=== PATIENT | male | born 1970 ===

== ENCOUNTER 2021-11-11 19:06 | Inpatient (IN) | payer MEDICARE, OTHER ==
[2021-11-11 19:46] VITALS: RESP 18
[2021-11-11] MEDS ORDERED: hydrOXYzine pamoate 25 MG CAP PO PRN (20:19)
[2021-11-11] MEDS ORDERED: LORazepam 1 MG TAB PO PRN (20:31)
[2021-11-11] MEDS ORDERED: ACETAMINOPHEN TAB 325 MG TAB PO PRN (20:31)
[2021-11-11] MEDS ORDERED: MAGNESIUM HYDROXIDE 2,400 MG/10 ML CUP PO PRN (20:31)
[2021-11-11] MEDS ORDERED: MAG HYDROX/AL HYDROX/SIMETH 30 ML CUP PO PRN (20:31)
[2021-11-11] MEDS ORDERED: HALOPERIDOL LACTATE 5 MG/ML 1 ML VIAL IM PRN (20:31)
[2021-11-11] MEDS ORDERED: LORazepam 2 MG/ML INJ IM PRN (20:44)
[2021-11-11] MEDS ORDERED: haloperidoL 5 MG TAB PO PRN (20:44)
[2021-11-11] MEDS: BENZTROPINE MESYLATE 0.5 MG TAB PO SCH (21:14)
[2021-11-11] MEDS: haloperidoL 5 MG TAB PO SCH (21:14)
[2021-11-12] MEDS: NICOTINE 14MG/24HR PATCH TRANSDERM SCH (08:44)
[2021-11-12] MEDS: haloperidoL 5 MG TAB PO SCH (08:44)
[2021-11-12] MEDS: BENZTROPINE MESYLATE 0.5 MG TAB PO SCH ×3 (08:44→21:30)
--- NOTE | 2021-11-12 13:08 | P.HP ---
Psychiatric H&P - . H&P Date: 11/12/21 History & Physical: Allergies Allergy/AdvReac Type Severity Reaction Status Date / Time No Known Allergies Allergy Verified 11/11/21 20:19 Vital Signs Temp 97.7 F 11/12/21 06:05 Pulse 73 11/12/21 06:05 Resp 18 11/12/21 06:05 BP 109/68 11/12/21 06:05 Pulse Ox 96 11/12/21 06:05 FiO2 Intake & Output 11/11/21 11/12/21 11/12/21 18:59 06:59 18:59 Weight 74.503 kg Laboratory Last Values Estimated Ave Glu mg/dL 116 11/12/21 07:23 Hemoglobin A1c 5.7 % (0.0-6.0) 11/12/21 07:23 TSH 4.270 mIU/L (0.465-4.680) 11/12/21 07:23 11/12/21 13:08 IDENTIFYING DATA: Patient is a single, unemployed, 51-year-old male with a significant history of schizophrenia who presents to the hospital from [facility] for auditory hallucinations, rapid speech, and delusions. HPI: Patient presented to the hospital from [facility] to [facility], and was subsequently petitioned and certified and transferred to our psychiatric unit for acute psychosis in the context of medication nonadherence. Upon evaluation on the psychiatric unit, the patient appears to be quite disorganized and unable to provide a clear history of he is difficult to understand and often rambles and is incoherent. He is able to deny any suicidal or homicidal ideation however does endorse some auditory hallucinations and some paranoid delusions. When asking for further detail, the patient is not able to provide any as he is nonsensical in his speech. The patient reports that he is on a regimen of Haldol. PAST PSYCHIATRIC HISTORY: Patient has a reported history of schizophrenia. His home medication regimen includes Haldol and Cogentin. The patient reportedly has multiple inpatient psychiatric admissions. The patient is originally from [facility]. Supposedly was supposed to follow-up with outpatient appointments there. Denies prior suicide attempts. PMH: Denies ALLERGIES: NO KNOWN DRUG ALLERGIES CHEMICAL DEPENDENCY HISTORY: Patient denies any tobacco, alcohol, marijuana, or illicit drug use. FAMILY PSYCHIATRIC/SUBSTANCE USE HISTORY: Unable to assess. SOCIAL HISTORY: Patient was born and raised in [place]. He reports that he is from the [facility]. He is currently homeless. MENTAL STATUS EXAM: General Appearance: Patient appears to be stated age is alert, directable, and attempts to cooperate. Patient appears to have fair hygiene and grooming. Behavior: Patient is seated without any agitated behavior. Speech: Patient's speech is mostly noncoherent and nonsensical. Nonlinear and difficult to follow. Mood/Affect: Patient reports their mood is "okay," affect is congruent and blunted. Suicidality/Homicidality: Currently denying any suicidal or homicidal ideation. Perceptions: Patient denies any visual hallucinations however endorses auditory hallucinations. Though content/process: The patient appears to be grossly disorganized. Memory and concentration: Patient is alert and oriented to person only. Concentration appears to be poor. Judgment and insight: poor STRENGTHS/WEAKNESSES: Patient's strengths include his resourcefulness. Weakness is that his severely mentally ill and nonadherent with treatment. He is also chronically homeless. INTELLECT: average IMPRESSIONS: Schizophrenia PLAN: -Patient is admitted under voluntary status to MHU for stabilization of psychiatric symptoms and safety. Patient signed adult voluntary form and medication consent and is placed in patient's chart. -Medications : Will start patient on Risperdal 2 mg by mouth twice a day for psychosis -Ativan and Haldol PRN for agitation/aggression -Patient was informed of the risks, benefits and side effects of the medication and patient verbally consented to taking the medications. Patient signed med consent form and was placed in chart. -Internal Medicine consult to perform medical evaluation and physical. -NRT - nicotine patch -SW on board for discharge planning. Encourage patient to participate in groups to work on coping skills.
[2021-11-12 16:30] LABS: HDL Cholesterol 44.8 mg/dL (40.00-60.00); Triglycerides 38.3 mg/dL (0.00-149.00)
[2021-11-12 16:43] LABS: Chol/HDL Ratio 3.37 Ratio; LDL Cholesterol,Direct Reflex 89.2 mg/dL (0.00-129.00)
[2021-11-12] MEDS: risperiDONE 2 MG TAB PO SCH (21:30)
--- NOTE | 2021-11-13 04:31 | P.HPIM ---
History of Present Illness H&P Date: 11/13/21 The patient is a 51-year-old male with a PMH of schizophrenia and tobacco abuse who was transferred from [facility] where he had previously presented for hallucinations. The patient reports that he continues to smoke a pack of cigarettes daily. He denied any physical complaints. He denied experiencing fever, chills, cough, chest pain, shortness of breath, nausea, vomiting, abdominal pain, diarrhea. He denied illicit substance use. Review of systems: Pertinent positives and negatives as discussed in HPI, a complete review of systems was performed and all other systems are negative. Physical examination: General: non toxic, no distress, appears at stated age, normal weight Derm: no unusual rashes/lesions no unusual ecchymoses, warm, dry Head: atraumatic, normocephalic, symmetric Eyes: EOMI, no lid lag, anicteric sclera, pupils equal round reactive to light ENT: Nose and ears atraumatic, no thrush, no pharyngeal erythema Neck: No thyromegaly, no cervical lymphadenopathy, trachea midline, supple Mouth: no lip lesion, mucus membranes moist Cardiovascular: S1S2 reg, no murmur, positive posterior tibial pulse bilateral, no edema, capillary refill less than 2 seconds Lungs: CTA bilateral, no rhonchi, no rales , no accessory muscle use Abdominal: soft, nontender to palpation, no guarding, no appreciable organomegaly, normal bowel sounds Ext: no gross muscle atrophy, muscle strength 5 out of 5 in all 4 extremities grossly, no contractures, Neuro: CN II-XI grossly intact, light touch intact all 4 extremities, finger to nose within normal limits, Psych: Alert, oriented, tangential thought process Assessment/plan Psychosis -As per psychiatry Tobacco abuse -Advised on importance of cessation Thank you for allowing us to participate in the care of this patient. We will follow peripherally. Do not hesitate to contact us with questions. Someone can be reached from the [facility] hospitalist group at all hours of the day at [phone]. Past Medical History - Past Family History Father Family Medical History: COPD Medications and Allergies Home Medications Medication Instructions Recorded Confirmed Type Benztropine Mesylate [Cogentin] 0.5 mg PO TID 11/11/21 11/11/21 History haloperidoL [Haloperidol] 5 mg PO TID 11/11/21 11/11/21 History hydrOXYzine pamoate [Vistaril] 25 mg PO Q6HR PRN 11/11/21 11/11/21 History Allergies Allergy/AdvReac Type Severity Reaction Status Date / Time No Known Allergies Allergy Verified 11/11/21 20:19 Physical Exam Vitals: Vital Signs Temp Pulse Resp BP Pulse Ox 11/12/21 06:05 97.7 F 73 18 109/68 96
[2021-11-13] MEDS: risperiDONE 2 MG TAB PO SCH (09:19)
[2021-11-13] MEDS: BENZTROPINE MESYLATE 0.5 MG TAB PO SCH ×3 (09:19→20:28)
[2021-11-13] MEDS: NICOTINE 14MG/24HR PATCH TRANSDERM SCH (09:20)
--- NOTE | 2021-11-13 11:15 | P.PN ---
Progress Note - Text Progress Note Date: 11/13/21 Interval History: Patient was seen wandering the hallways and was directable and agreeable to speak with tag writer in the office. Currently, the patient is much more linear and conversation however continues to be quite disorganized and delusional. He shows multiple pictures to this provider of different materials he has taken pictures of at [employer] including planks of wood and mirrors. The patient reports that he is planning to build an x-ray machine and a photocopier. The patient is not reporting any auditory or visual hallucinations. He denies any suicidal or homicidal ideation, intention, and/or plan. He has been adherent with his medications and is not reporting any significant side effects at this time. He reports no issues regarding his sleep or his appetite. Mental Status Exam: General Appearance: Patient appears to be stated age is alert, directable, and cooperative. Behavior: Patient is calmly seated without any agitated behavior. Speech: Patient's speech is fluent and nonpressured. Mood/Affect: Mood is okay, affect is congruent and constricted. Suicidality/Homicidality: Patient denies having any suicidal or homicidal ideation intent or plan. Perceptions: Patient denies any visual hallucinations and denies any auditory hallucinations Though content/process: The patient appears to be delusional however resourceful Memory and concentration: AOX3, grossly intact for the purposes of this session Judgment and insight: Poor at baseline Vital Signs Temp 98.3 F 11/13/21 09:20 Pulse 97 11/13/21 09:20 Resp 18 11/13/21 09:20 BP 106/62 11/13/21 09:20 Pulse Ox 96 11/12/21 06:05 FiO2 Laboratory Results - Last 24 Hours 11/12/21 07:23 Triglycerides 38.30 Cholesterol 151.00 LDL Cholesterol Direct 89.20 LDL Cholesterol, Calc VLDL Cholesterol, Calc HDL Cholesterol 44.80 Cholesterol/HDL Ratio 3.37 TSH 4.270 Assessment Schizophrenia Plan: -Patient continues to meet criteria for inpatient psychiatric admission for symptom stabilization and safety. Patient has signed adult voluntary form and medication consent and was placed in patient's chart. -Medications: Increase Risperdal to 3 mg by mouth twice a day for psychosis -When necessary Ativan and Haldol for agitation/aggression. -NRT - nicotine patch -SW on board for discharge planning. Encouraged the patient to participate in milieu.
[2021-11-13] MEDS: risperiDONE 1 MG TAB PO SCH (20:28)
[2021-11-14 06:36] VITALS: BP 104/56; PULSE 80; TEMP 97.9
[2021-11-14] MEDS: risperiDONE 1 MG TAB PO SCH (08:29)
[2021-11-14] MEDS: BENZTROPINE MESYLATE 0.5 MG TAB PO SCH (08:29)
--- NOTE | 2021-11-14 14:48 | P.DS ---
Providers Date of admission: 11/11/21 19:06 Expected date of discharge: 11/14/21 Attending physician: Choco Nieto MD Consults: 11/11/21 20:39 Consult Physician Routine Consulting Provider: Charlene Perez Consult Reason/Comments: H&P and medical and mass on right upper shoulder Do you want consulting provider notified?: Yes Primary care physician: Stated None - Discharge Diagnosis(es) (1) Schizophrenia Current Visit: Yes Status: Acute Priority: High Hospital Course: Admission HPI: Patient is a single, unemployed, 51-year-old male with a significant history of schizophrenia who presents to the hospital from [facility] for auditory hallucinations, rapid speech, and delusions. HPI: Patient presented to the hospital from [facility] to [facility], and was subsequently petitioned and certified and transferred to our psychiatric unit for acute psychosis in the context of medication nonadherence. Upon evaluation on the psychiatric unit, the patient appears to be quite disorganized and unable to provide a clear history of he is difficult to understand and often rambles and is incoherent. He is able to deny any suicidal or homicidal ideation however does endorse some auditory hallucinations and some paranoid delusions. When asking for further detail, the patient is not able to provide any as he is nonsensical in his speech. The patient reports that he is on a regimen of Haldol. Patient has a reported history of schizophrenia. His home medication regimen includes Haldol and Cogentin. The patient reportedly has multiple inpatient psychiatric admissions. The patient is originally from [facility]. Supposedly was supposed to follow-up with outpatient appointments there. Denies prior suicide attempts. Hospital course: Upon admission to the unit patient was initially very disorganized and nonsensical and speech. He was restarted on a regimen of Risperdal for acute psychosis and continued on Cogentin for EPS side effects. The patient is known to the mental health community due to multiple admissions and a history of nonadherence to treatment and constant wandering. The patient was however with his medications and displayed significant improvement in regards to his nons ensical and noncoherent speech. He became more linear and logical to follow. He at baseline, continued to display some bizarre and delusional thought processes however he has been calm and cooperative on the unit. On discharge, the patient is not reporting any suicidal or homicidal ideation, intention, and/or plan. He is not reporting any auditory or visual hallucinations. He denies any paranoia or other delusions. He continues to state a desire to make a x-ray machine out of 2 by 4s however is not expressing any other delusional thought content that would deem him a danger to society. As the patient displayed appropriate behaviors on the unit and was directable and cooperative, he was subsequently discharge as he met no criteria for continued inpatient psychiatric hospitalization. Mental status exam: General Appearance: Patient appears to be stated age is alert, pleasant, and cooperative. Patient is in no acute distress and has fair hygiene and grooming Behavior: Patient is calmly seated without any agitated behavior. Speech: Patient's speech is fluent and nonpressured. Mood/Affect: Patient reports their mood is "going pretty good", affect is congruent and euthymic. Suicidality/Homicidality: Patient denies having any suicidal or homicidal ideation intent or plan. Perceptions: Patient denies any auditory or visual hallucinations. Though content/process: There is evidence of moderate delusional thought content including the desire to build an x-ray machine. Thought process is linear and goal-directed. Patient appears to be future oriented. Memory and concentration: AOX3, grossly intact for the purposes of this session. Can spell "WORLD" backwards correctly. Judgment and insight: Improved with guarded prognosis Vital Signs Temp 97.9 F 11/14/21 06:35 Pulse 80 11/14/21 06:35 Resp 18 11/14/21 06:35 BP 104/56 11/14/21 06:35 Pulse Ox 98 11/14/21 06:35 FiO2 Laboratory Results Estimated [address] Glu mg/dL 116 11/12/21 07:23 Hemoglobin A1c 5.7 % (0.0-6.0) 11/12/21 07:23 Triglycerides 38.30 mg/dL (0.00-149.00) 11/12/21 07:23 Cholesterol 151.00 mg/dL (0.00-200.00) 11/12/21 07:23 LDL Cholesterol Direct 89.20 mg/dL (0.00-129.00) 11/12/21 07:23 LDL Cholesterol, Calc mg/dL (0.0-131.0) 11/12/21 07:23 VLDL Cholesterol, Calc mg/dL (5.00-40.00) 11/12/21 07:23 HDL Cholesterol 44.80 mg/dL (40.00-60.00) 11/12/21 07:23 Cholesterol/HDL Ratio 3.37 Ratio 11/12/21 07:23 TSH 4.270 mIU/L (0.465-4.680) 11/12/21 07:23 Allergies Allergy/AdvReac Type Severity Reaction Status Date / Time No Known Allergies Allergy Verified 11/11/21 20:19 Impression: Schizophrenia Plan: -Continue with discharge today as patient has improved and stabilized psychiatrically and is not currently an imminent threat to himself and/or others. Patient will remain at chronically elevated risk for harm to self and/or others due to his severity of mental illness and homelessness. -Continue medications: Risperdal 3 mg by mouth twice a day for psychosis Cogentin 0.5 mg by mouth 3 times a day for EPS side effects -Patient was counseled on the need for medication compliance and appropriate follow-up at mental health and also primary care for medical issues. Patient verbalized understanding and agreed. -Social work to arrange for and conduct family meeting to ensure safety upon discharge and answer any questions/concerns. Social work also to arrange for patients follow up appointments with [facility] for psychiatric care along with follow up with primary care provider. -Patient counseled on abstaining from recreational drugs and marijuana and alc ohol. Was informed/educated on the adverse effects on their physical and mental health. Patient verbally agreed and understood. -Patient was instructed to return to the hospital or seek immediate medical care if their psychiatric or medical symptoms do worsen or reoccur. -Psychoeducation and supportive therapy provided to patient. Risks and benefits of pharmacological treatment versus the risks and benefits of nontreatment weight and discussed. Informed consent discussion held. Common side effects of psychotropics discussed such as, but not limited to headache, GI disturbance, sexual dysfunction, movement disorders, sedation, and orthostatic hypotension. Life threatening and blackbox warnings of prescribed medications also discussed. Potential risks of operating a vehicle or heavy machinery discussed with patient at length. Advised on importance of compliance and a reliable and responsible manner. Patient advised to review FDA consumer labeling of all medications prior to taking. Patient verbalized understanding of potential risks, and agrees with current treatment plan. Patient advised to medically contact physician/emergency personnel if any acute changes in condition occur. Patient Condition at Discharge: Stable Plan - Discharge Summary Discharge Rx Participant: No New Discharge Prescriptions: New risperiDONE [RisperDAL] 3 mg PO BID 30 Days tab Benztropine Mesylate [Cogentin] 0.5 mg PO TID 30 Days tab Discontinued hydrOXYzine pamoate [Vistaril] 25 mg PO Q6HR PRN PRN Reason: Anxiety Benztropine Mesylate [Cogentin] 0.5 mg PO TID haloperidoL [Haloperidol] 5 mg PO TID Discharge Medication List Benztropine Mesylate [Cogentin] 0.5 mg PO TID 30 Days tab 11/14/21 [Rx] risperiDONE [RisperDAL] 3 mg PO BID 30 Days tab 11/14/21 [Rx] Follow up Appointment(s)/Referral(s): Wellness,Team [Other] - 11/20/21 1:00 pm (additional phone number ) Department, [facility] [Other] - As Needed Patient Instructions/Handouts: Schizophrenia (DC), Help Prevent Suicide (DC), Hallucinations (DC), Suicide Prevention (DC) Activity/Diet/Wound Care/Special Instructions: Avoid the use of street drugs and alcohol. Take all prescriptions as prescribed. When you are in need of refills on your medications, please contact your medical provider and/or outpatient psychiatrist to have this done. Please go to scheduled outpatient appointment for aftercare treatment. If symptoms return or become worse, call the crisis line at and/or go to the nearest emergency room for evaluation. Discharge Disposition: HOME SELF-CARE
== END 2021-11-14 14:55 | disposition home or self-care (01) | DRG 885 ==
LOC: 3MHU 19:06
PROVIDERS: ADMIT Psychiatry & Neurology Psychiatry; ATTEND Psychiatry & Neurology Psychiatry
DX: F20.9 Schizophrenia, unspecified (principal); R45.851 Suicidal ideations; F17.210 Nicotine dependence, cigarettes, uncomplicated; Z82.5 Family history of asthma and other chronic lower respiratory diseases; Z79.899 Other long term (current) drug therapy; Z91.14 Patient's other noncompliance with medication regimen; Z71.6 Tobacco abuse counseling
CPT/HCPCS: 80061; 83036; 83721; 84443

== ENCOUNTER 2021-11-14 19:07 | Emergency (ER) | payer MEDICARE ==
[2021-11-14 19:27] VITALS: RESP 18; TEMP 98.3
--- NOTE | 2021-11-14 19:42 | ED ---
General Adult HPI - General Source: patient, police, RN notes reviewed, old records reviewed Mode of arrival: ambulatory Limitations: altered mental status <Agustin Burks - Last Filed: 11/14/21 19:40> <Paresh Mckeon - Last Filed: 11/14/21 21:34> - General Chief complaint: Psychiatric Symptoms Stated complaint: Petition Time Seen by Provider: 11/14/21 19:28 - History of Present Illness Initial comments: 51-year-old male brought in by police under petition for mental health evaluation. Patient was recently admitted to this institution, history of schizophrenia. He is rambling incoherently. He was found at local bus stop waiting to be transported from [place] to [place]. He is unaware that he is in the city of [place]. He is unable to give any historical details or any specific complaints. (Agustin Burks) - Related Data Previous Rx's Medication Instructions Recorded Benztropine Mesylate [Cogentin] 0.5 mg PO TID 30 Days tab 11/14/21 risperiDONE [RisperDAL] 3 mg PO BID 30 Days tab 11/14/21 Allergies Allergy/AdvReac Type Severity Reaction Status Date / Time No Known Allergies Allergy Verified 11/14/21 21:31 Review of Systems ROS Other: All systems not noted in ROS Statement are negative. <Agustin Burks - Last Filed: 11/14/21 19:40> ROS Other: All systems not noted in ROS Statement are negative. <Paresh Mckeon - Last Filed: 11/14/21 21:34> ROS Statement: Those systems with pertinent positive or pertinent negative responses have been documented in the HPI. Past Medical History Past Medical History: Unable to Obtain History of Any Multi-Drug Resistant Organisms: Unobtainable Past Surgical History: Unable to Obtain Past Psychological History: Unable to Obtain Smoking Status: Current every day smoker Past Alcohol Use History: None Reported Past Drug Use History: None Reported - Past Family History Father Family Medical History: COPD <Agustin Burks - Last Filed: 11/14/21 19:40> General Exam Limitations: no limitations General appearance: alert, in no apparent distress Head exam: Present: atraumatic, normocephalic Eye exam: Present: normal appearance, PERRL ENT exam: Present: mucous membranes dry Neck exam: Present: normal inspection. Absent: tenderness, meningismus Respiratory exam: Present: normal lung sounds bilaterally. Absent: respiratory distress, wheezes Cardiovascular Exam: Present: regular rate, normal rhythm GI/Abdominal exam: Present: soft. Absent: distended, tenderness, guarding, rebound Extremities exam: Present: normal inspection, normal capillary refill Neurological exam: Present: alert. Absent: motor sensory deficit Psychiatric exam: Present: anxious, other (Pressured speech, rambling incoherently) Skin exam: Present: warm, dry, intact. Absent: cyanosis, diaphoretic <Agustin Burks - Last Filed: 11/14/21 19:40> Course <Agustin Burks - Last Filed: 11/14/21 19:40> Vital Signs 11/14/21 19:23 Temperature 98.3 F Pulse Rate 100 Respiratory 18 Rate Blood Pressure 131/89 O2 Sat by Pulse 98 Oximetry - Reevaluation(s) Reevaluation #1: 11/14/21 19:42 Patient medically cleared for EPS evaluation. (Agustin Burks) Disposition <Agustin Burks - Last Filed: 11/14/21 19:40> Is patient prescribed a controlled substance at d/c from ED?: No <Paresh Mckeon - Last Filed: 11/14/21 21:34> Clinical Impression: Schizophrenia Disposition: HOME SELF-CARE Condition: Fair Instructions (If sedation given, give patient instructions): Schizophrenia (ED) Referrals: None,Stated [Primary Care Provider] - 1-2 days
[2021-11-14] MEDS ORDERED: LIDOCAINE 1% INJ 10MG/ML (5 ML VIAL-PF) SQ ONE (19:44)
[2021-11-14 22:05] VITALS: BP 120/79; PULSE 101
== END 2021-11-14 22:05 | disposition home or self-care (01) ==
LOC: EC 19:07
DX: F20.9 Schizophrenia, unspecified (principal); F17.200 Nicotine dependence, unspecified, uncomplicated
CPT/HCPCS: 82075; 99284